=== PATIENT | female | born 1935 | race African-American/Black ===

== ENCOUNTER 2020-12-25 09:40 | Inpatient (IN) | payer MEDICARE, MEDICAID ==
[2020-12-25] MEDS ORDERED: hydrALAZINE 20 MG/ML VIAL SLOW IVP PRN (11:02)
[2020-12-25 12:16] LABS: Hemoglobin A1c 5.3 % (4.0-6.0)
[2020-12-25] MEDS: Lactated Ringer's 1,000 ML IV SCH ×2 (12:25→20:35)
[2020-12-25 12:32] LABS: Anion Gap 19 mmol/L (10-20); BUN (Urea Nitrogen) 21 mg/dL (9.8-20.1); Calc. Creatinine Clearance 0 mL/min (70-130); Calcium 9.1 mg/dL (7.8-10.44); Carbon Dioxide 21 mmol/L (23-31); Chloride 107 mmol/L (98-107); Glucose 113 mg/dL (83-110); Potassium 3.6 mmol/L (3.5-5.1); Sodium 143 mmol/L (136-145)
[2020-12-25] MEDS: Morphine 2 MG/ML VIAL SLOW IVP PRN ×2 (14:00→20:28)
[2020-12-25 14:29] VITALS: BMI 27.2
[2020-12-25] MEDS ORDERED: Morphine 4 MG/ML VIAL SLOW IVP PRN (15:51)
[2020-12-25 21:46] LABS: SARS-CoV-2 PCR NAA for Saliva Not Detected (NotDetected)
[2020-12-26] MEDS: Morphine 2 MG/ML VIAL SLOW IVP PRN ×2 (03:05→10:45)
[2020-12-26 05:54] LABS: #Basophils 0.1 thou/uL (0.0-0.2); #Lymphocytes 1.6 thou/uL (1.20-3.40); #Monocytes 0.8 thou/uL (0.11-0.59); #Neutrophils 10.6 thou/uL (1.40-6.50); %Basophils 0.5 % (0.0-1.0); %Eosinophils 0.2 % (0.0-10.0); %Lymphocytes 11.9 % (21.0-51.0); %Neutrophils 81.4 % (42.0-75.0); Hemoglobin 12.5 g/dL (12.0-16.0); Mean Corpuscular HGB CONC 31.6 g/dL (32.0-36.0); Mean Corpuscular Hemoglobin 28.3 pg (27.0-31.0); Mean Corpuscular Volume 89.7 fL (78.0-98.0); Mean Platelet Volume 8.1 fL (7.4-10.4); Platelet Count 271 thou/uL (130-400); RBC Distribution Width 12.4 % (11.5-14.5); Red Blood Cell (RBC) Count 4.39 mill/uL (4.20-5.40); White Blood Cell (WBC) Count 13.1 thou/uL (4.8-10.8)
[2020-12-26 06:14] LABS: Anion Gap 13 mmol/L (10-20); BUN (Urea Nitrogen) 23 mg/dL (9.8-20.1); Calc. Creatinine Clearance 48 mL/min (70-130); Calcium 8.8 mg/dL (7.8-10.44); Carbon Dioxide 27 mmol/L (23-31); Chloride 102 mmol/L (98-107); Glucose 107 mg/dL (83-110); Potassium 3.4 mmol/L (3.5-5.1); Sodium 139 mmol/L (136-145)
[2020-12-26] MEDS: Lactated Ringer's 1,000 ML IV SCH ×2 (06:25→16:47)
[2020-12-26] MEDS ORDERED: Potassium Chloride 20 MEQ in Premix Bag 1 BAG IVPB SCH ×2 (08:00→08:15)
[2020-12-26] MEDS: Ondansetron PF 4 MG/2 ML Vial IVP PRN (11:33)
[2020-12-26] MEDS ORDERED: MD-Gastroview 120 ML BOT ONE (12:58)
[2020-12-26] MEDS ORDERED: Promethazine HCl 12.5 MG in Sodium Chloride 0.9% 50 ML IVPB PRN (13:38)
[2020-12-26] MEDS ORDERED: Fentanyl 100 MCG/2 ML VIAL ONE (14:49)
[2020-12-26] MEDS ORDERED: Lidocaine 2% Jelly 5 ML TUBE ONE (14:49)
[2020-12-26] MEDS ORDERED: Levofloxacin 500 mg/D5W 100 ml Premix Bag ONE (15:29)
[2020-12-26] MEDS ORDERED: Promethazine HCl 25 MG/ML VIAL SLOW IVP PRN (15:32)
[2020-12-26] MEDS ORDERED: Promethazine HCl 25 MG/ML VIAL IM PRN (15:32)
[2020-12-26] MEDS ORDERED: Ondansetron HCl/PF 4 MG/2 ML Vial IVP PRN (15:32)
[2020-12-26] MEDS ORDERED: Dexamethasone 20 MG/5 ML VIAL ONE (15:43)
[2020-12-26] MEDS ORDERED: Glycopyrrolate 0.2 MG/ML 5 ML SYRINGE ONE (15:43)
[2020-12-26] MEDS ORDERED: PHENYLEPHRINE-NS 100 MCG/ML 10 ML SYRINGE ONE (15:43)
[2020-12-26] MEDS ORDERED: PROPOFOL 200 MG/20 ML VIAL ONE (15:43)
[2020-12-26] MEDS ORDERED: Ondansetron PF 4 MG/2 ML Vial ONE (15:43)
[2020-12-26] MEDS ORDERED: Rocuronium Bromide 10 MG/ML (10ML VIAL) ONE (15:43)
[2020-12-26] MEDS ORDERED: Lidocaine 1% PF 5 ML VIAL ONE (15:43)
[2020-12-26] MEDS ORDERED: Succinylcholine 200 MG/10 ml SYRINGE FS ONE (15:43)
[2020-12-26] MEDS ORDERED: Fentanyl 100 MCG/2 ML VIAL SLOW IVP PRN (16:53)
[2020-12-26] MEDS: Fentanyl 100 MCG/2 ML VIAL SLOW IVP PRN ×2 (20:34→23:04)
[2020-12-27] MEDS: Ondansetron PF 4 MG/2 ML Vial IVP PRN (01:58)
[2020-12-27] MEDS: Lactated Ringer's 1,000 ML IV SCH ×3 (02:42→22:28)
[2020-12-27 07:07] LABS: #Lymphocytes 1.3 thou/uL (1.20-3.40); #Monocytes 1.4 thou/uL (0.11-0.59); #Neutrophils 11.4 thou/uL (1.40-6.50); %Basophils 0.1 % (0.0-1.0); %Eosinophils 0.1 % (0.0-10.0); %Lymphocytes 9.4 % (21.0-51.0); %Monocytes 9.9 % (0.0-10.0); %Neutrophils 80.6 % (42.0-75.0); Mean Corpuscular HGB CONC 33.1 g/dL (32.0-36.0); Mean Corpuscular Hemoglobin 29.7 pg (27.0-31.0); Mean Corpuscular Volume 89.8 fL (78.0-98.0); Mean Platelet Volume 8.7 fL (7.4-10.4); Platelet Count 258 thou/uL (130-400); RBC Distribution Width 12.3 % (11.5-14.5); Red Blood Cell (RBC) Count 4.05 mill/uL (4.20-5.40); White Blood Cell (WBC) Count 14.1 thou/uL (4.8-10.8)
[2020-12-27 07:26] LABS: Anion Gap 13 mmol/L (10-20); BUN (Urea Nitrogen) 34 mg/dL (9.8-20.1); Calc. Creatinine Clearance 33 mL/min (70-130); Calcium 8.6 mg/dL (7.8-10.44); Carbon Dioxide 31 mmol/L (23-31); Chloride 105 mmol/L (98-107); Glucose 136 mg/dL (83-110); Potassium 3.5 mmol/L (3.5-5.1); Sodium 145 mmol/L (136-145)
[2020-12-27] MEDS: Fentanyl 100 MCG/2 ML VIAL SLOW IVP PRN ×2 (08:13→20:53)
[2020-12-27] MEDS ORDERED: Enoxaparin Sodium 40 MG/0.4 ML SYRINGE SC SCH (09:00)
[2020-12-27] MEDS ORDERED: Sodium Chloride 0.9% 1,000 ML IV SCH ×2 (09:30→10:00)
[2020-12-27] MEDS: Piperacillin/Tazobactam 2.25 GM in Sodium Chloride 0.9% 100 ML IVPB SCH ×2 (14:01→20:47)
[2020-12-27] MEDS ORDERED: Enoxaparin Sodium 30 MG/0.3 ML SYRINGE SC SCH (15:15)
[2020-12-28] MEDS: Piperacillin/Tazobactam 2.25 GM in Sodium Chloride 0.9% 100 ML IVPB SCH ×2 (01:27→08:19)
[2020-12-28] MEDS: Fentanyl 100 MCG/2 ML VIAL SLOW IVP PRN (01:27)
[2020-12-28 07:17] LABS: #Lymphocytes 1.2 thou/uL (1.20-3.40); #Monocytes 1.1 thou/uL (0.11-0.59); #Neutrophils 10.3 thou/uL (1.40-6.50); %Basophils 0.2 % (0.0-1.0); %Eosinophils 0.3 % (0.0-10.0); %Lymphocytes 9.8 % (21.0-51.0); %Monocytes 8.3 % (0.0-10.0); %Neutrophils 81.5 % (42.0-75.0); Hemoglobin 10.5 g/dL (12.0-16.0); Mean Corpuscular HGB CONC 32.1 g/dL (32.0-36.0); Mean Corpuscular Hemoglobin 29.2 pg (27.0-31.0); Mean Platelet Volume 9.2 fL (7.4-10.4); Platelet Count 211 thou/uL (130-400); RBC Distribution Width 12.3 % (11.5-14.5); Red Blood Cell (RBC) Count 3.59 mill/uL (4.20-5.40); White Blood Cell (WBC) Count 12.7 thou/uL (4.8-10.8)
[2020-12-28 07:34] LABS: Anion Gap 14 mmol/L (10-20); BUN (Urea Nitrogen) 26 mg/dL (9.8-20.1); Calc. Creatinine Clearance 47 mL/min (70-130); Calcium 8.6 mg/dL (7.8-10.44); Carbon Dioxide 25 mmol/L (23-31); Chloride 109 mmol/L (98-107); Glucose 84 mg/dL (83-110); Potassium 3.3 mmol/L (3.5-5.1); Sodium 145 mmol/L (136-145)
[2020-12-28] MEDS: Enoxaparin Sodium 30 MG/0.3 ML SYRINGE SC SCH (08:19)
[2020-12-28] MEDS: Lactated Ringer's 1,000 ML IV SCH ×3 (08:19→23:30)
[2020-12-28] MEDS ORDERED: traMADol HCl 50 MG TAB PO PRN (10:03)
[2020-12-28] MEDS ORDERED: HYDROcodone/Acetaminophen 7.5/325 mg Tablet PO PRN (10:03)
[2020-12-28] MEDS: Verapamil 80 MG TAB PO SCH (21:19)
[2020-12-29] MEDS: Fentanyl 100 MCG/2 ML VIAL SLOW IVP PRN (06:15)
[2020-12-29] MEDS: Verapamil 80 MG TAB PO SCH ×2 (09:45→21:05)
[2020-12-29] MEDS: Enoxaparin Sodium 30 MG/0.3 ML SYRINGE SC SCH (09:46)
[2020-12-29 10:04] LABS: Hemoglobin 11.1 g/dL (12.0-16.0); Mean Corpuscular HGB CONC 32.3 g/dL (32.0-36.0); Mean Corpuscular Hemoglobin 29.5 pg (27.0-31.0); Mean Corpuscular Volume 91.2 fL (78.0-98.0); Mean Platelet Volume 8.8 fL (7.4-10.4); Platelet Count 205 thou/uL (130-400); RBC Distribution Width 12.2 % (11.5-14.5); Red Blood Cell (RBC) Count 3.76 mill/uL (4.20-5.40); White Blood Cell (WBC) Count 14.6 thou/uL (4.8-10.8)
[2020-12-29 10:27] LABS: Anion Gap 13 mmol/L (10-20); BUN (Urea Nitrogen) 21 mg/dL (9.8-20.1); Calc. Creatinine Clearance 55 mL/min (70-130); Calcium 8.5 mg/dL (7.8-10.44); Carbon Dioxide 26 mmol/L (23-31); Chloride 110 mmol/L (98-107); Glucose 113 mg/dL (83-110); Potassium 3.6 mmol/L (3.5-5.1); Sodium 145 mmol/L (136-145)
[2020-12-30] MEDS: Fentanyl 100 MCG/2 ML VIAL SLOW IVP PRN (04:41)
[2020-12-30] MEDS: Enoxaparin Sodium 40 MG/0.4 ML SYRINGE SC SCH (08:44)
[2020-12-30] MEDS: Verapamil 80 MG TAB PO SCH ×2 (08:44→20:33)
[2020-12-30] MEDS ORDERED: Acetaminophen 325 MG TAB PO PRN (17:34)
[2020-12-30 18:56] LABS: Bacteria/HPF None Seen HPF (None Seen); Bilirubin Negative (Negative); Blood, Urine Negative (Negative); Clarity Clear (Clear); Glucose, Urine (Dipstick) Normal (Negative); Ketone, Urine Negative (Negative); Leukocyte Negative Leu/uL (Negative); Nitrite Negative (Negative); Protein, Urine (Dipstick) 20 mg/dL (Neg-Trace); RBC/HPF 0-3 HPF (0-3); Specific Gravity, Urine 1.012 (1.002-1.036); Squamous Epithelial 0-3 HPF (0-3); Urobilinogen Normal mg/dL (Less than 2); WBC/HPF 0-3 HPF (0-3); pH, Urine 7.5 (5.0-9.0)
[2020-12-30 19:00] LABS: Urine Culture Reflex No No
[2020-12-31] MEDS: Verapamil 80 MG TAB PO SCH (08:01)
[2020-12-31] MEDS: Enoxaparin Sodium 40 MG/0.4 ML SYRINGE SC SCH (08:01)
[2020-12-31 11:54] VITALS: BP 122/70; TEMP 98
[2020-12-31 15:49] LABS: SARS-CoV-2 NAA Rapid Test Not Detected (NotDetected)
[2020-12-31] MEDS ORDERED: Cephalexin 250 MG CAP PO SCH (18:00)
== END 2020-12-31 17:01 | DRG 330 ==
LOC: ERS 09:40 → T4-B 10:34
PROVIDERS: ADMIT Student in an Organized Health Care Education/Training Program; ATTEND Student in an Organized Health Care Education/Training Program
PROC: 0D9670Z Drainage of Stomach with Drainage Device, Via Natural or Artificial Opening (ICD-10-PCS; 2020-12-25)
PROC: 0DB80ZZ Excision of Small Intestine, Open Approach (ICD-10-PCS; principal; 2020-12-26)
DX: K46.0 Unspecified abdominal hernia with obstruction, without gangrene (principal); R78.81 Bacteremia; K56.7 Ileus, unspecified; K55.9 Vascular disorder of intestine, unspecified; Z20.822 Contact with and (suspected) exposure to COVID-19; I10 Essential (primary) hypertension; R73.9 Hyperglycemia, unspecified; K59.09 Other constipation; D50.9 Iron deficiency anemia, unspecified; E87.6 Hypokalemia; D64.9 Anemia, unspecified; R00.0 Tachycardia, unspecified; R50.82 Postprocedural fever; Z80.0 Family history of malignant neoplasm of digestive organs; Z79.899 Other long term (current) drug therapy; Z90.710 Acquired absence of both cervix and uterus
CPT/HCPCS: 36415; 71045; 74018; 74250; 80048; 81001; 83036; 83735; 84145; 85025; 85027; 87040; 87635; 88307; 93005; 93010; 99285; J1100; J1650; J1956; J2270; J2405; J2543; J2550; J2704; J3010; J3480; J3490; Q9963; U0002; U0003; U0005